=== PATIENT | female | born 1990 | race Caucasian/White ===

== ENCOUNTER → 2023-04-06 14:01 | Outpatient (CLI) | payer OTHER, SELFPAY ==
[2023-04-06 20:10] LABS: Urine N gonorrhoeae NOT DETECTED
[2023-04-06 20:18] LABS: Urine Chlamydia NOT DETECTED
== END ==
PROVIDERS: PCP Family Medicine; Visit Provider Obstetrics & Gynecology
DX: Z34.81 Encounter for supervision of other normal pregnancy, first trimester (principal); Z11.3 Encounter for screening for infections with a predominantly sexual mode of transmission; Z3A.09 9 weeks gestation of pregnancy
CPT/HCPCS: 87086; 87491; 87591

== ENCOUNTER → 2023-04-06 14:43 | Outpatient (CLI) | payer OTHER, SELFPAY ==
[2023-04-06 15:16] LABS: Add Manual Diff / Slide Review NO; Basophils Absolute Auto 100 /uL (0-100); Basophils Percent Auto 0.7 % (0-2); Eosinophils Absolute Auto 100 /uL (0-450); Eosinophils Percent Auto 1.7 % (2-4); Hematocrit 34.2 % (36-46); Hemoglobin 12.1 g/dL (12.0-16.0); Lymphocytes Absolute Auto 1600 /uL (1100-4500); Lymphocytes Percent Auto 19.6 % (25-40); Mean Corpuscular HGB Conc 35.3 % (30-36); Mean Corpuscular Hemoglobin 32.6 PG (26-34); Mean Corpuscular Volume 92.4 fL (80-100); Monocytes Absolute Auto 500 /uL (0-900); Monocytes Percent Auto 6.4 % (3-14); Neutrophils Absolute Auto 5900 /uL (1500-7000); Neutrophils Percent Auto 71.6 % (50-75); Platelet Count 279 X10^3/uL (150-400); Red Cell Distribution Width 12.5 % (11.6-14.8); White Blood Cell Count 8.2 X10^3/uL (4.5-11.0)
[2023-04-07 03:50] LABS: RPR Screen Non Reactive (Non Reactive)
[2023-04-07 08:09] LABS: Varicella IgG Antibody 1828 index (Immune >165)
[2023-04-09 17:35] LABS: Hepatitis B Surface Antigen NEGATIVE s/c (NEGATIVE); Rubella Antibody IgG 68.9 IU/mL (>15)
[2023-04-09 18:03] LABS: HIV 1 & 2 Ab/Ag 4th Gen Combo NEGATIVE (NEGATIVE); Hep C Virus Ab w/Reflex Quant NEGATIVE s/c (NEGATIVE)
== END ==
PROVIDERS: PCP Family Medicine; Referring Provider Obstetrics & Gynecology; Visit Provider Obstetrics & Gynecology
DX: Z34.81 Encounter for supervision of other normal pregnancy, first trimester (principal); Z11.3 Encounter for screening for infections with a predominantly sexual mode of transmission; Z3A.09 9 weeks gestation of pregnancy
CPT/HCPCS: 36415; 80055; 86787; 86803; 86850; 86900; 86901; 87086; 87389; 87491; 87591

== ENCOUNTER → 2023-05-31 08:57 | Outpatient (CLI) | payer OTHER, SELFPAY ==
[2023-06-02 19:38] LABS: Estriol, Free 1.62 ng/mL (.); Inhibin A, Dimeric 116.99 pg/mL (.); Inhibin A, MoM 0.79 (.); Maternal Ethnicity Caucasian (.); Maternal Weight 157 lbs (.); Number of Fetuses No (.); OSBR Risk 1 IN 10000 (.); Results Report (.); Test Results *Screen Negative* (.); hCG, MoM 0.51 (.); hCG, Serum 18047 mIU/mL (.)
== END ==
PROVIDERS: PCP Family Medicine; Referring Provider Obstetrics & Gynecology; Visit Provider Obstetrics & Gynecology
DX: Z34.82 Encounter for supervision of other normal pregnancy, second trimester (principal); Z3A.17 17 weeks gestation of pregnancy
CPT/HCPCS: 36415; 82105; 82677; 84702; 86336

== ENCOUNTER → 2023-06-28 09:25 | Outpatient (CLI) | payer OTHER, SELFPAY ==
--- NOTE | 2023-06-28 09:26 | DI.US.S_ITS ---
PROCEDURE: US OB >= 14 WEEKS FETUS INDICATIONS: ANATOMY OUTSIDE/PRIOR DATING DATA: Last menstrual period (LMP): 01/07/2023. LMP-based estimated date of delivery (DONA): 10/14/2023. First dating scan (date and location): ; outside. Estimated date of delivery (DONA) from first dating scan: 11/03/2022. The calculations are made using the working DONA of 11/03/2022. TECHNIQUE: Real-time scanning was performed of the fetus, with image documentation and biometric measurements. COMPARISON: Outside Facility, [facility], US OB < 14 WEEKS, 03/09/2023, 15:00. FINDINGS: General: A single living intrauterine gestation is present. Presentation: Vertex. Placenta: Placental position is posterior , without previa. Amniotic fluid index: 19.0 cm, normal range is 5-24 cm. Single deepest vertical pocket is 5.8 cm. heart rate: There is positive heart tone. heart rate not given. Maternal cervical canal: 4 point cm long. Normal lower limit is 2.5 cm. biometrics: Biparietal diameter: 22 weeks 5 days Head circumference: 21 weeks 4 days Abdominal circumference: 21 weeks 5 days Femur length: 21 weeks 4 days Clinically estimated gestational age: 21 weeks 5 days Composite gestational age from present scan: 21 weeks 6 days Estimated weight and percentile: 440 g; 40% Anatomic survey: Neuro: Ventricles are non-dilated at less than 10 mm. Cisterna magna is normal at 3-11 mm. Cerebellum is normal in size and morphology. Nuchal skin fold: Normal at less than 6 mm between 14-21 weeks gestational age. Face: Nose and lips, facial profile are normal. Spine: No evidence for spina bifida. Heart: 4-chambered heart is present, with normal ventricular outflow tracts. Diaphragm: Diaphragm is intact. Stomach: Left-sided stomach is present. Kidneys: No hydronephrosis. Normal is less than 5 mm in 2nd trimester, less than 7 mm in 3rd trimester. Cord: 3-vessel cord has orthotopic insertion. Bladder: Normal in size. Extremities: All 4 extremities identified. IMPRESSION: 1. A single living intrauterine gestation redemonstrated, demonstrating appropriate interval growth. 2. Normal anatomic survey. We strive to produce accurate, complete, and clear reports of imaging services. To assist us in improving patient care, this report was composed using standard report templates and voice recognition software. Therefore, it may contain abnormal punctuation, insertions and/or omissions. Occasional wrong-word or sound-alike substitutions may occur. Though we review the report and make efforts to correct it, we do recommend that the report be read carefully in proper context to recognize any text inaccuracies. Dictated by: Emmanuel Andrew M.D. on 06/28/2023 at 13:13 Approved by: Emmanuel Andrew M.D. on 06/28/2023 at 13:18
== END ==
PROVIDERS: PCP Family Medicine; Referring Provider Obstetrics & Gynecology; Visit Provider Obstetrics & Gynecology
DX: Z34.82 Encounter for supervision of other normal pregnancy, second trimester (principal); Z3A.21 21 weeks gestation of pregnancy
CPT/HCPCS: 76811

== ENCOUNTER → 2023-08-03 07:36 | Outpatient (CLI) | payer OTHER, SELFPAY ==
[2023-08-03 09:06] LABS: Hematocrit 32.2 % (36-46); Hemoglobin 11.2 g/dL (12.0-16.0)
[2023-08-03 09:56] LABS: GTT (PREG) 1 Hour PP 50gm Dose 101 mg/dL (76-139)
== END ==
PROVIDERS: PCP Family Medicine; Referring Provider Specialist; Visit Provider Specialist
DX: Z34.82 Encounter for supervision of other normal pregnancy, second trimester (principal); Z3A.26 26 weeks gestation of pregnancy; R82.998 Other abnormal findings in urine
CPT/HCPCS: 36415; 82950; 85014; 85018; 87086

== ENCOUNTER → 2023-08-31 14:15 | Outpatient (CLI) | payer OTHER, SELFPAY | PROVIDERS: PCP Family Medicine; Visit Provider Obstetrics & Gynecology | DX: R82.998 Other abnormal findings in urine (principal); R31.9 Hematuria, unspecified | CPT/HCPCS: 87086 ==

== ENCOUNTER → 2023-09-18 14:37 | Outpatient (CLI) | payer OTHER, SELFPAY | PROVIDERS: PCP Family Medicine; Visit Provider Obstetrics & Gynecology | DX: R82.998 Other abnormal findings in urine (principal) | CPT/HCPCS: 87086 ==

== ENCOUNTER → 2023-10-02 10:35 | Outpatient (CLI) | payer OTHER, SELFPAY ==
[2023-10-03 14:40] LABS: Strep Grp B PCR NEG for Grp B Strep
== END ==
PROVIDERS: PCP Family Medicine; Visit Provider Obstetrics & Gynecology
DX: Z3A.35 35 weeks gestation of pregnancy (principal); Z34.93 Encounter for supervision of normal pregnancy, unspecified, third trimester; R82.998 Other abnormal findings in urine
CPT/HCPCS: 87086; 87653

== ENCOUNTER 2023-10-29 03:24 | Inpatient (IN) | payer OTHER, SELFPAY ==
[2023-10-29 03:27] VITALS: BP 142/93
--- NOTE | 2023-10-29 04:05 | P.HPOB_ITS ---
OB HPI Date/Time Date of admission: 10/29/23 Date Patient Seen: 10/29/23 Time Patient Seen: 04:07 History of Present Condition Chief complaint: Labor : 3 Para: 2 Estimated Date of Delivery: 11/03/23 Estimated Gestational Age (weeks): 39w 5d Narrative: Denia Howe is a 32 year old female Comments: Patient states that roughly midnight tonight she developed fluid loss from her vagina. She states it was minimal initially she states she got up after that and noted some fluid leaking which was heavier. She developed contractions at about the same time. Patient called me this morning [place] was decided to transfer her she arrived via ambulance. Reviewing her history her last labor lasted anywhere from 3-4 hours and she had a very short 2nd stage. Upon arrival here her AmniSure was positive. Her cervical examination showed her to be 6 cm 90% effaced -1 vertex. Patient has started her OB care at 9 weeks 6 days she had an ultrasound at that time which differed from her LMP by 20 days therefore her due date was determined on a first-trimester ultrasound. She had multiple visits. Her labs 50 g Glucola was 101 she is noted to be O positive. Her STI checks were negative she is rubella immune. GBS was noted to be negative. Indications Indication for induction OB: history of rapid labor (Patient's last labor was 3- 4 hours. She also states he had a short 2nd stage.) and other ([place]. She was brought here via helicopter because of the hour of the day.) History of Present care: good care, initiated at week # (Nine weeks 6 days), number of visits (10) and pounds weight gain (26 lb) Dating criteria: based on 1st trimester US only Ultrasounds: normal 1st trimester US and normal mid trimester US Obstetrical complications: none Preadmission Labs Blood type: O (+) positive -: Antibody screen: negative, Cystic fibrosis screen: positive, GBS status: negative, HBsAG: negative, HIV: negative, HSV 1: negative, HSV 2: negative and RPR/VDLR: negative -: Chlamydia screen: not detected and Gonorrhea screen: not detected -: Rubella: immune and Varicella: immune Quad screen: Normal 1 hr GTT: 101 Prior (ies) History: x2. At 39 and 38 weeks. Evaluation Evaluation Variability: Average (6-10) monitor accelerations: Present Monitor Decelerations: Absent Contraction Frequency (minutes): 3 Uterine Contraction Intensity: Moderate Category of Tracing: Reactive Status: Category l Dilation (cm): 6 Effacement (%): 90 Effacement: >/=80% station: -1 Position of cervix: anterior Consistency: soft Non-invasive Membranes Rupture Test: positive [facility] Medical History (Updated 10/24/23 @ 09:49 by Onur Zepeda MD) Allergies Migraines (~2021) Eczema (~2002) Depression Anxiety (~2014) HSV-2 infection (~2006) pain Surgical History (Updated 03/07/23 @ 12:01 by Sania Traylor RN) No pertinent past surgical history Family History (Updated 05/02/23 @ 18:02 by Natasha Chiu) Family/Other Breast cancer Brother Asthma Mental health problem Mother Substance abuse Mental health problem Grandmother Substance abuse Family/Other Substance abuse Social History marital status: number of children: 2 household members: spouse and children lives independently: Yes caregiver/support person: Yes housing: house pets and animals: Yes (3 cats, 1 dog ( managing litter boxes)) education level: high school 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) current occupational exposures/hazards: No special nadja needs: No travel history: over 6 months ago seatbelt use: always helmet use: Yes water heater temp set < 120 deg: Yes working smoke detector in home: Yes fire extinguisher in home: Yes carbon monox detector in home: Yes firearms in home: Yes firearms unloaded and locked: Yes do you feel safe at home: Yes Smoking Status: Never smoker second hand exposure: No alcohol intake: former (2 seltzers/day when not ) substance use type: does not use during the past year weight has: remained stable well-balanced diet: about half the time daily servings fruits/ve-4 caffeine: Yes (2 Wake Ice/day (total 140mg/day)) Type(s) of exercise: walking and weight lifting frequency: daily Meds Home Medications and Allergies Home Medications Medication Instructions Recorded Confirmed Type diphenhydramine HCl 25 mg capsule 25 mg PO BEDTIME PRN 03/07/23 10/24/23 History (Allergy (diphenhydramine)) prenat.vits,kingsley,sxr-[id number] 1 tab PO DAILY 03/07/23 10/24/23 History valacyclovir 500 mg tablet 500 mg PO BID PRN 03/07/23 10/24/23 History Allergies Allergy/AdvReac Type Severity Reaction Status Date / Time No Known Drug Allergies Allergy Unverified 10/24/23 09:18 OB Exam Vital signs Blood Pressure: 136/73 Pulse Rate: 80 HENMT Head: normal to inspection Mouth: oral mucosae normal, lip normal and tongue normal Eyes General: appearance normal, both eyes and all related structures Resp Effort & Inspection: normal respiratory effort Auscultation: clear to auscultation bilaterally Cardio Rate: regular rate Rhythm: regular rhythm Heart Sounds: S1 normal Extremities Lower extremity: Yes normal to inspection External Female Exam: Yes normal external appearance Uterus Location (Fundal Height): 37 Presentation: vertex Estimated Weight (lbs): 7 Amniotic Fluid: clear Objective Labs 10/29/23 03:45 Assessment and Plan Assessment and Plan Assessment and Plan narrative: Patient is a 32-year-old female at 39 weeks and 2 days. Her membranes were ruptured at this time. [place] and was brought here via helicopter because of her history of rapid labors as well as the suspicion of her membranes being ruptured. At this point we are planning to play an epidural. We are looking forward to a spontaneous vaginal delivery. Time Spent with Patient Total time spent with greater than 50% in coordination of care (as documented) at patient's floor/unit and/or counseling patient:: 25 - 35 minutes
[2023-10-29 04:09] LABS: Add Manual Diff / Slide Review NO; Basophils Absolute Auto 100 /uL (0-100); Basophils Percent Auto 0.6 % (0-2); Eosinophils Absolute Auto 100 /uL (0-450); Eosinophils Percent Auto 0.5 % (2-4); Hematocrit 39.5 % (36-46); Hemoglobin 13.2 g/dL (12.0-16.0); Lymphocytes Absolute Auto 1600 /uL (1100-4500); Lymphocytes Percent Auto 14.8 % (25-40); Mean Corpuscular HGB Conc 33.3 % (30-36); Mean Corpuscular Volume 96.1 fL (80-100); Monocytes Absolute Auto 800 /uL (0-900); Neutrophils Absolute Auto 8400 /uL (1500-7000); Neutrophils Percent Auto 77.1 % (50-75); Platelet Count 187 X10^3/uL (150-400); Red Blood Cell Count 4.11 X10^6/uL (4.0-5.2); Red Cell Distribution Width 13.8 % (11.6-14.8); White Blood Cell Count 10.9 X10^3/uL (4.5-11.0)
[2023-10-29 04:29] VITALS: BP 136/73; PULSE 80
[2023-10-29 04:44] VITALS: BP 117/78; PULSE 84; RESP 16; TEMP 36.8
--- NOTE | 2023-10-29 06:24 | P.PCNOB_ITS ---
Labor & Delivery Delivery date: 10/29/23 Cervical ripening method: none Induction method: none Delivery monitor: external FHT and external uterine Route of delivery: vacuum extraction (Vacuum was placed at +3 because of episodes of bradycardia down to the 60s.) Indication for instrumentation: nonreassuring FHR tracing L&D Laceration Description: None Estimated blood loss (mL): 350 Anesthesia Type: Epidural Complications: When patient reached complete she had several episodes of bradycardia down to the 60s which responded. In an effort to shorten the 2nd stage vacuum was placed at +3 pulled through 1 contraction the head easily delivered. However following delivery of the head the contraction ended and there was a 50 2second shoulder dystocia which responded to Stevie Mars's maneuvers as well as suprapubic pressure. Narrative: Patient thinks she ruptured roughly midnight tonight. Following this she had some contractions which continued to increase in strength and frequency. She presented to the emergency department at Sunday at which time she was evaluated and following consulting with me a helicopter was [place] and she was brought to our hospital here at [facility]. Upon admission she was noted to have increasingly stronger contractions her AmniSure was noted to be positive for rupture of membranes. She was checked and noted to be 6 cm. At this point an epidural was placed for labor analgesia. She was allowed to continue with l abor, I was summoned at roughly 0546 at which time my exam showed the cervix to be completely dilated and effaced. The head was +1 at that time. She pushed through about 3 test pushes and at that point she was set up for vaginal delivery. She pushed well she had a 13 minutes 2nd stage. Because of her episodes of bradycardia a vacuum was placed pulled through 1 contraction the head was easily delivered over an intact perineum. Because this was the end of the contraction the remainder of the infant was slow and delivering. For this reason Alfredo Whitfield maneuvers were accomplished and following this 50 second shoulder dystocia the remainder of the delivered without difficulty. The infant was placed on the maternal abdomen and the cord was not clamped for another 2 minutes. The placenta showed a 10 minute 3rd stage was delivered and at time of inspection it appeared to be intact however long the margin was an area which was suggestive of abruption. For this reason this was sent for evaluation. at time of delivery a nuchal cord was loose was encountered and was reduced prior to delivering the remainder of the infant. The female infant had Apgars of 7 and 9 estimated blood loss was 350 cc. Mother and tolerated delivery well sponge and needle counts were correct. Plan for aftercare: Routine care
--- NOTE | 2023-10-29 06:26 | PATH_ITS ---
[facility] Accession Number: [id number] No. of containers..01 Tissue . 01 Material submitted: . placenta - PLACENTA . 01 Diagnosis: Juárez Placenta (455 grams): membranes with no evidence of chorioamnionitis. Three vessel umbilical cord with no evidence of funisitis. Placental disc with subamniotic fibrin thrombus and villous maturity appropriate for term gestation. MRV 11/01/2023 1518 Local . 01 Electronically signed: . Jared Goldstein MD, PhD, Pathologist NPI- [id number] . 01 Gross description: . The specimen is received in formalin labeled with the patient's name, , and no additional designation, and consists of a discoid juárez placenta with a trimmed weight of 455 grams and measuring 18.6 x 14.1 x 2.6 cm with no additional lobes identified. . The membranes are reddy and translucent with no evidence of thickening or discoloration identified. They insert at the margin and have a point of rupture 6.2 cm from the nearest placental disc edge. . The attached segment of cord measures 31.3 cm in length by 1.3 cm in average diameter with a leftward coil and an index of approximately 1.5 twists per 5 cm. The cord inserts eccentrically 4.2 cm from the nearest placental disc edge. The detached segment of cord measures 22.5 cm in length by 1.4 cm in average diameter. Sectioning reveals unremarkable tricascular architecture with no knots or lesions identified. . The surface is blue-washburn with normal arborizing vasulature and reddy areas of discoloration occupying approximately 30% of the surface. No additional lesions are identified. . The maternal surface is apparently complete with no discoloration or lesions identified. Sectioning reveals a red, spongy cut surface with no discoloration or lesions identified. . Field Support Technician sections are submitted as follows: A1: Membrane roll and placental end of cord. A2: Membrane roll and section of detached segment of cord. A3-A4: Full thickness surface discoloration. A5-A7: Central full thickness unremarkable sections. ([id number]) /JUSTINE 10/30/2023 55 Local . 01 Pathologist provided ICD-10: Z37.0 . 01 CPT . 081619 Specimen Comment: A courtesy copy of this report has been sent to [facility] Pathology Performed at: 01 [facility] Cyt[facility] [address] [place] [address] [address] [facility], [place], [place] [id number] MD Ho Mart MD Phone: [phone]
[2023-10-29] MEDS: ACETAMINOPHEN 325 MG TABLET 650 MG PO ×2 (08:53→18:37)
[2023-10-29] MEDS: DOCUSATE 100 MG CAPSULE PO (08:53)
[2023-10-29] MEDS: IBUPROFEN 600 MG TABLET PO ×2 (14:16→20:38)
[2023-10-30] MEDS: IBUPROFEN 600 MG TABLET PO (03:46)
[2023-10-30] MEDS: ACETAMINOPHEN 325 MG TABLET 650 MG PO (03:46)
--- NOTE | 2023-10-30 08:27 | P.DS_ITS ---
Discharge Providers Provider Date of admission: 10/29/23 03:24 Discharge Date: 10/30/23 Primary care physician: Сергей Ross DO Consults: 10/29/23 03:27 Consult to Anesthesiology Urgent Comment: Consulting Provider: Anesthesiologist Reason for consultation: Epidural 10/30/23 06:42 Consult to Systems Program Manager Routine Comment: Discharge provider: Mariella Aguilera MD Summary Hospital Course Date Patient Seen: 10/30/23 Time Patient Seen: 08:27 Diagnoses: 39 week gestation with spontaneous rupture membranes and labor delivered Hospital Course: Patient arrived on Labor and delivery in active labor with spontaneous rupture membranes. She had a vacuum assisted vaginal delivery due to recurrent severe variables. Patient is doing well . She is urinating and ambulating well. She is breast-feeding without difficulty. No signs or symptoms of preeclampsia. Peripartum Data Infant Delivery Method: Assisted Delivery (Vacuum assisted vaginal delivery) Laceration Description: None Procedures: Vacuum assisted vaginal delivery complications: none [place] 1: Gender: Female Disposition of : home Status at Discharge Cognitive/behavioral status at discharge: oriented Functional status at discharge: independent ambulation Overall status at discharge: patient is progressing back to baseline Time Spent with Patient Time attestation: Total time spent providing and/or coordinating discharge services: Time spent: Less than 30 minutes Objective Labs 10/29/23 03:45 Exam Vital Signs (past 8 hours): Blood pressure 117/78, pulse of 84, temperature 98.3? Narrative Exam Narrative: Abdomen is soft, nontender. Uterus is firm, at U, nontender. Perineum intact. Extremities without edema and nontender Discharge Plan Discharge Plan Patient Disposition: Home Discharge orders & Medications Prescriptions: Continued prenat.vits,kingsley,[id number] Tablet 1 tab PO DAILY diphenhydramine HCl [Allergy (diphenhydramine)] 25 mg capsule 25 mg PO BEDTIME PRN valacyclovir 500 mg tablet 500 mg PO BID PRN Rx Instructions: Take for 5 days PRN genital herpes outbreaks Follow up/Referrals: Onur Zepeda MD [Physician] - (6 week appt w/ Dr. Zepeda: ) Diet/Activity/Treatments Diet: Regular Activity: Nothing in vagina for 6 weeks Skin/Wound/Dressing Care Report to your healthcare provider any signs of infection, such as:: chills, fever and increased pain Visit Report/Discharge Packet Stand Alone Forms: Discharge: Care, Patient Portal/API Discharge Data Primary Care Provider: Сергей Ross
[2023-10-30] MEDS: PRENATAL VIT,CALC/IRON/FOLIC 1 TABLET 1 TAB PO (08:51)
== END 2023-10-30 09:22 | disposition home or self-care (01) | DRG 807 ==
PROVIDERS: Admitting Provider Obstetrics & Gynecology; PCP Family Medicine; Referring Provider Obstetrics & Gynecology; Visit Provider Obstetrics & Gynecology
DX: O99.824 Streptococcus B carrier state complicating childbirth (principal); Z37.0 Single live birth; O99.892 Other specified diseases and conditions complicating childbirth; R00.1 Bradycardia, unspecified; Z3A.39 39 weeks gestation of pregnancy; O76 Abnormality in fetal heart rate and rhythm complicating labor and delivery
CPT/HCPCS: 36415; 59050; 59400; 59409; 85025; 86850; 86900; 86901; G0379

== ENCOUNTER → 2023-12-11 11:55 | Outpatient (CLI) | payer OTHER, SELFPAY | PROVIDERS: PCP Family Medicine; Visit Provider Obstetrics & Gynecology | DX: R82.90 Unspecified abnormal findings in urine (principal); R82.998 Other abnormal findings in urine | CPT/HCPCS: 87077; 87086; 87186 ==

== ENCOUNTER → 2025-07-03 14:32 | Outpatient (CLI) | payer OTHER, SELFPAY ==
[2025-07-03 19:12] LABS: Urine N gonorrhoeae NOT DETECTED
[2025-07-03 19:29] LABS: Urine Chlamydia NOT DETECTED
== END ==
PROVIDERS: PCP Family Medicine; Visit Provider Obstetrics & Gynecology
DX: Z11.3 Encounter for screening for infections with a predominantly sexual mode of transmission (principal)
CPT/HCPCS: 87491; 87591

== ENCOUNTER → 2025-07-03 14:48 | Outpatient (CLI) | payer OTHER, SELFPAY ==
[2025-07-03 15:47] LABS: Add Manual Diff / Slide Review NO; Hematocrit 35.6 % (36-46); Hemoglobin 12.6 g/dL (12.0-16.0); Lymphocytes Absolute Auto 1700 /uL (1100-4500); Mean Corpuscular HGB Conc 35.4 % (30-36); Mean Corpuscular Hemoglobin 32.1 PG (26-34); Mean Corpuscular Volume 90.8 fL (80-100); Platelet Count 252 X10^3/uL (150-400)
[2025-07-04 15:08] LABS: Hepatitis B Surface Antigen NEGATIVE s/c (NEGATIVE)
[2025-07-04 15:30] LABS: HIV 1 & 2 Ab/Ag 4th Gen Combo NEGATIVE (NEGATIVE); Hep C Virus Ab w/Reflex Quant NEGATIVE s/c (NEGATIVE)
== END ==
PROVIDERS: PCP Family Medicine; Referring Provider Obstetrics & Gynecology; Visit Provider Obstetrics & Gynecology
DX: Z34.80 Encounter for supervision of other normal pregnancy, unspecified trimester (principal); Z11.3 Encounter for screening for infections with a predominantly sexual mode of transmission
CPT/HCPCS: 36415; 80055; 86787; 86803; 86850; 86900; 86901; 87389; 87491; 87591

== ENCOUNTER → 2025-08-11 15:33 | Outpatient (CLI) | payer OTHER, SELFPAY ==
[2025-08-11 16:45] LABS: Natera Collection Specimen Collected
== END ==
PROVIDERS: PCP Family Medicine; Referring Provider Obstetrics & Gynecology; Visit Provider Obstetrics & Gynecology
DX: Z34.81 Encounter for supervision of other normal pregnancy, first trimester (principal); Z36.0 Encounter for antenatal screening for chromosomal anomalies
CPT/HCPCS: 36415

== ENCOUNTER → 2025-09-08 14:04 | Outpatient (CLI) | payer OTHER, SELFPAY | PROVIDERS: PCP Family Medicine; Referring Provider Obstetrics & Gynecology; Visit Provider Obstetrics & Gynecology | DX: Z36.0 Encounter for antenatal screening for chromosomal anomalies (principal) | CPT/HCPCS: 36415; 82105 ==